=== PATIENT | female | born 1935 | race Caucasian/White ===

== ENCOUNTER 2024-08-26 16:21 | Inpatient (IN) | payer MEDICARE, MEDICAID ==
[~2024-08-26] VITALS: Ht 162.6 cm; Wt 64.9 kg
[2024-08-26 16:58] LABS: MEAN CORPUSCULAR HEMOGLOBIN 26.6 pg (28.0-32.0); MEAN CORPUSCULAR HGB CONC 33.2 g/dL (31.0-37.0); MEAN CORPUSCULAR VOLUME 80.1 fL (81.0-99.0); MEAN PLATELET VOLUME 7.7 fl (7.4-10.4); PLATELET 200 x1000/uL (130-400); RED BLOOD CELL COUNT 1.72 mill/uL (4.2-5.4); WHITE BLOOD COUNT 8.7 x1000/uL (4.5-11.0)
[2024-08-26 17:04] LABS: CARBON DIOXIDE 17 mEq/L (21-32); CHLORIDE 103 mEq/L (98-107); POTASSIUM 4.9 mEq/L (3.5-5.1); SODIUM 131 mEq/L (136-145)
[2024-08-26 17:05] LABS: CALCIUM 7.8 mg/dL (8.7-10.4)
[2024-08-26 17:08] LABS: INR 1.1; PROTHROMBIN TIME 11.9 sec (9.6-11.0)
[2024-08-26 17:09] LABS: CREATININE 1.7 mg/dL (0.6-1.0)
[2024-08-26 17:10] LABS: GLUCOSE 311 mg/dL (70-105); LACTIC ACID 3.3 mmol/L (0.4-2.0); TROPONIN I HIGH SENSITIVITY 20 ng/L (3.0-34); UREA NITROGEN BLOOD 69 mg/dL (9-23)
[2024-08-26 17:11] LABS: ALANINE AMINOTRANSFERASE 108 IU/L (10-49); ASPARTATE AMINOTRANSFERASE 209 IU/L (<34); DIFFERENTIAL COMMENT 1; HEMATOCRIT. 13.8 % (36.0-48.0); HEMOGLOBIN. 4.6 g/dL (12.0-16.0)
[2024-08-26 17:12] LABS: ALBUMIN 2.9 g/dL (3.2-4.8); BILIRUBIN DIRECT 0.2 mg/dL (<=3.0); BILIRUBIN TOTAL 0.4 mg/dL (0.1-1.0); PROTEIN TOTAL 5.8 g/dL (6.0-8.3)
[2024-08-26 17:15] LABS: HYPOCHROMASIA 1+; MICROCYTOSIS 2+; PLATELET ESTIMATE NORMAL
[2024-08-26] MEDS: PANTOPRAZOLE SODIUM 40 MG/VIAL IV STA (17:24)
[2024-08-26] MEDS: ONDANSETRON HCL 4MG/2ML INJ IV STA (17:25)
[2024-08-26] MEDS: SODIUM CHLORIDE 0.9% 1,000 ML IV ONE (17:25)
[2024-08-26] MEDS: OCTREOTIDE 1,000 MCG in SODIUM CHLORIDE 0.9% 100 ML IV STA (17:35)
[2024-08-26] MEDS ORDERED: CEFTRIAXONE 1GM/50ML 50 ML IV ONE (17:45)
[2024-08-26] MEDS: PANTOPRAZOLE 80 MG in SODIUM CHLORIDE 0.9% 100 ML IV STA (18:57)
[2024-08-26] MEDS: ACETAMINOPHEN 1000MG/100ML 100 ML IV ONE (19:21)
[2024-08-26] MEDS: OCTREOTIDE ACETATE 50 MCG/ML 1ML IV STA (19:22)
[2024-08-26] MEDS: CEFTRIAXONE 1GM/50ML 50 ML IV NR (19:26)
[2024-08-26] MEDS: OCTREOTIDE 1,000 MCG in SODIUM CHLORIDE 0.9% 98 ML IV STA (21:21)
[2024-08-26] MEDS ORDERED: ONDANSETRON HCL 4MG/2ML INJ IV PRN (21:45)
[2024-08-26] MEDS ORDERED: MORPHINE SULFATE 2 MG/ML INJ (NOT FOR IM USE) IV PRN (21:45)
[2024-08-26] MEDS ORDERED: IPRATROPIUM/ALBUTEROL 0.5-3(2.5)MG/3ML NEB HHN PRN (21:45)
[2024-08-26] MEDS ORDERED: NALOXONE HCL 0.4MG/ML VIAL IV PRN (22:00)
[2024-08-26] MEDS: SODIUM CHLORIDE 0.45% 1,000 ML IV SCH (22:19)
[2024-08-26 23:51] LABS: IRON 11 ug/dL (50-170)
[2024-08-26 23:53] LABS: TROPONIN I HIGH SENSITIVITY 29 ng/L (3.0-34)
[2024-08-26 23:54] LABS: TOTAL IRON BINDING CAPACITY 465 ug/dl (250-425)
[2024-08-27 11:19] LABS: MEAN CORPUSCULAR HEMOGLOBIN 27.7 pg (28.0-32.0); MEAN CORPUSCULAR HGB CONC 33.6 g/dL (31.0-37.0); MEAN CORPUSCULAR VOLUME 82.3 fL (81.0-99.0); MEAN PLATELET VOLUME 7.9 fl (7.4-10.4); PLATELET 185 x1000/uL (130-400); RED BLOOD CELL COUNT 2.26 mill/uL (4.2-5.4); RED CELL DISTRIBUTION WIDTH 17.1 % (11.6-14.6); WHITE BLOOD COUNT 8.8 x1000/uL (4.5-11.0)
[2024-08-27 11:39] LABS: CALCIUM 7.4 mg/dL (8.7-10.4); POTASSIUM 4.9 mEq/L (3.5-5.1)
[2024-08-27 11:45] LABS: CREATININE 1.5 mg/dL (0.6-1.0)
[2024-08-27 11:51] LABS: DIFFERENTIAL COMMENT 1
[2024-08-27 11:53] LABS: HEMOGLOBIN. 6.3 g/dL (12.0-16.0)
[2024-08-27 11:54] LABS: HEMATOCRIT. 18.6 % (36.0-48.0)
[2024-08-27 17:32] LABS: ANISOCYTOSIS 1+; NUCLEATED RED BLOOD CELLS 1 /100 WBC; PLATELET ESTIMATE NORMAL
[2024-08-27] MEDS ORDERED: DEXTROSE 50% WATER 50ML SYRINGE IV PRN (18:30)
[2024-08-27] MEDS ORDERED: IRON SUCROSE 200 MG XX SCH (18:30)
[2024-08-27] MEDS: PANTOPRAZOLE SODIUM 40 MG/VIAL IV SCH (23:16)
[2024-08-27] MEDS: SUCRALFATE 1G TABLET PO SCH (23:16)
[2024-08-27] MEDS: IRON SUCROSE COMPLEX 100 MG/5 ML ML IV SCH (23:16)
[2024-08-28 05:46] LABS: HEMATOCRIT. 26.8 % (36.0-48.0); HEMOGLOBIN. 9.4 g/dL (12.0-16.0); LYMPHOCYTES % 10.9 % (20.0-50.0); MEAN CORPUSCULAR HEMOGLOBIN 30.3 pg (28.0-32.0); MEAN CORPUSCULAR HGB CONC 35.2 g/dL (31.0-37.0); MONOCYTES % 21.1 % (2.0-8.0); PLATELET 174 x1000/uL (130-400); RED BLOOD CELL COUNT 3.12 mill/uL (4.2-5.4); RED CELL DISTRIBUTION WIDTH 16.5 % (11.6-14.6); WHITE BLOOD COUNT 8.5 x1000/uL (4.5-11.0)
[2024-08-28 05:59] LABS: DIFFERENTIAL COMMENT 1
[2024-08-28 06:02] LABS: INR 1.1; PROTHROMBIN TIME 11.9 sec (9.6-11.0)
[2024-08-28 06:04] LABS: CHLORIDE 108 mEq/L (98-107); POTASSIUM 4.5 mEq/L (3.5-5.1); SODIUM 135 mEq/L (136-145)
[2024-08-28 06:06] LABS: CALCIUM 7.4 mg/dL (8.7-10.4); CARBON DIOXIDE 19 mEq/L (21-32)
[2024-08-28 06:11] LABS: CREATININE 1.4 mg/dL (0.6-1.0); GLUCOSE 248 mg/dL (70-105); UREA NITROGEN BLOOD 48 mg/dL (9-23)
[2024-08-28 06:13] LABS: ALANINE AMINOTRANSFERASE 84 IU/L (10-49); ALBUMIN 2.7 g/dL (3.2-4.8); ASPARTATE AMINOTRANSFERASE 112 IU/L (<34); BILIRUBIN DIRECT 0.8 mg/dL (<=3.0); BILIRUBIN TOTAL 1.5 mg/dL (0.1-1.0); PROTEIN TOTAL 5.1 g/dL (6.0-8.3)
[2024-08-28] MEDS: INSULIN LISPRO 100 UNITS/ML SUBCUT SCH (07:52)
[2024-08-28] MEDS: BLOOD SUGAR DIAGNOSTIC STRIP TEST SCH (07:52)
[2024-08-28 08:02] LABS: FOLIC ACID (FOLATE) SERUM 12.72 ng/mL (>5.38)
[2024-08-28 08:05] LABS: VITAMIN B12 SERUM 734 pg/mL (211-911)
[2024-08-28 08:16] LABS: HEPATITIS B SURFACE ANTIGEN NEGATIVE (Negative)
[2024-08-28 08:37] LABS: HEPATITIS A AB IGM NEGATIVE (Negative); HEPATITIS B CORE AB IGM NEGATIVE (Negative)
[2024-08-28 08:38] LABS: HEPATITIS C AB NON REACTIVE (Neg) (Negative)
[2024-08-28] MEDS ORDERED: ONDANSETRON HCL 4MG/2ML INJ IV PRN (12:15)
[2024-08-28] MEDS ORDERED: HYDROMORPHONE HCL/PF 1MG/ML INJ IV PRN (12:15)
[2024-08-28] MEDS ORDERED: PROPOFOL 200MG/20ML VIAL IV ONE (12:25)
[2024-08-28 16:00] VITALS: BP 105/50; PULSE 87; RESP 18; TEMP 38.22528; O2SAT 98
[2024-08-28 16:43] VITALS: BP 105/50; PULSE 87; RESP 18; TEMP 38.2528
[2024-08-28] MEDS ORDERED: ASPI-1406 PO (18:09)
[2024-08-28] MEDS ORDERED: CALC-1305 (18:09)
[2024-08-28] MEDS ORDERED: PIOG30TA70 PO (18:09)
[2024-08-28] MEDS ORDERED: TRAZ-251 PO (18:09)
[2024-08-28] MEDS ORDERED: IBAN150T21 PO (18:09)
[2024-08-28] MEDS ORDERED: ATOR40TA70 (18:09)
[2024-08-28] MEDS ORDERED: BENA-8 (18:09)
[2024-08-28] MEDS ORDERED: CYAN100T43 PO (18:09)
[2024-08-28 20:00] VITALS: BP 116/51; PULSE 89; RESP 18; TEMP 38.72532; O2SAT 99
[2024-08-29] VITALS (7 sets, daily range): BP systolic 101–122; BP diastolic 45–58; PULSE 85–93; RESP 17–20; TEMP 36.61404–38.3364; O2SAT 95–99
[2024-08-29] MEDS: PIPERACILLIN/TAZO 3.375G/50ML 50 ML IV SCH (06:04)
[2024-08-29] MEDS: ACETAMINOPHEN 325MG TABLET PO PRN (06:05)
[2024-08-29] MEDS ORDERED: PROT40 MT (11:44)
[2024-08-29] MEDS ORDERED: SUCR1TAB PO (11:44)
== END 2024-08-29 18:34 | disposition home or self-care (01) | DRG 377 ==
LOC: ER 16:21 → EDBEDREQ 16:50 → EDBEDREQSVC 21:37 → EDBEDREQ 21:37 → MICUSO 21:37 → EDBEDREQSVC 21:38 → ER 08-28 09:00 → 8WST 08-28 15:17
PROVIDERS: ADMIT Internal Medicine; ATTEND Internal Medicine
PROC: 30233N1 Transfusion of Nonautologous Red Blood Cells into Peripheral Vein, Percutaneous Approach (ICD-10-PCS; 2024-08-27)
PROC: 0DB78ZX Excision of Stomach, Pylorus, Via Natural or Artificial Opening Endoscopic, Diagnostic (ICD-10-PCS; principal; 2024-08-28)
DX: K25.4 Chronic or unspecified gastric ulcer with hemorrhage (principal); K20.91 Esophagitis, unspecified with bleeding; D62 Acute posthemorrhagic anemia; E87.20 Acidosis, unspecified; N17.9 Acute kidney failure, unspecified; K29.71 Gastritis, unspecified, with bleeding; D50.9 Iron deficiency anemia, unspecified; R79.89 Other specified abnormal findings of blood chemistry; E78.5 Hyperlipidemia, unspecified; K22.2 Esophageal obstruction; E11.9 Type 2 diabetes mellitus without complications; K44.9 Diaphragmatic hernia without obstruction or gangrene; K76.0 Fatty (change of) liver, not elsewhere classified; Z96.649 Presence of unspecified artificial hip joint; Z85.841 Personal history of malignant neoplasm of brain; Z90.49 Acquired absence of other specified parts of digestive tract; Z79.82 Long term (current) use of aspirin
CPT/HCPCS: 36415; 74176; 80048; 80076; 82607; 82746; 82962; 83036; 83540; 83550; 83605; 83880; 84484; 85025; 86705; 86709; 86850; 86900; 86920; 87340; 88305; 93005; 99285; G0378; J0696; J1815; J2354; J2405; J2470; J2543; J2704; J7030; J7050; J0131